=== PATIENT | male | born 1995 | race Caucasian/White ===

== ENCOUNTER 2019-06-01 23:54 | Emergency (ER) | payer SELFPAY ==
[2019-06-02] MEDS ORDERED: HYDROcodone/Acetaminophen 5/325 mg Tablet ONE (00:11)
[2019-06-02] MEDS ORDERED: predniSONE 20 MG TAB ONE (00:11)
== END 2019-06-02 00:14 | disposition home or self-care (01) ==
LOC: BURERS 23:54
DX: S39.012A Strain of muscle, fascia and tendon of lower back, initial encounter (principal); X50.0XXA Overexertion from strenuous movement or load, initial encounter; Y99.0 Civilian activity done for income or pay
CPT/HCPCS: 99283; J7512

== ENCOUNTER 2019-10-18 11:57 | Emergency (ER) | payer OTHER, SELFPAY ==
[2019-10-19 12:17] LABS: SARS-CoV-2 MS2 Positive; SARS-CoV-2 N Gene Negative; SARS-CoV-2 S Gene Negative; SARS-CoV-2 orf1ab Negative
== END 2019-10-18 12:47 | disposition home or self-care (01) ==
LOC: BURERS 11:57
DX: R09.81 Nasal congestion (principal); R11.10 Vomiting, unspecified; R19.7 Diarrhea, unspecified; R05 Cough; Z20.828 Contact with and (suspected) exposure to other viral communicable diseases
CPT/HCPCS: 87635; 99283; U0003